=== PATIENT | male | born 1995 | race Caucasian/White ===

== ENCOUNTER 2017-08-13 19:45 | Emergency (ER) | payer SELFPAY ==
[~2017-08-13] VITALS: Ht 185.4 cm; Wt 86.2 kg
[2017-08-13 19:50] VITALS: BP 134/78
[2017-08-13] MEDS ORDERED: ONDANSETRON 4 MG TAB.RAPDIS ONE (21:16)
[2017-08-13] MEDS ORDERED: ONDANSETRON 4 MG TAB.RAPDIS PO ONE (21:30)
== END 2017-08-13 21:28 | disposition home or self-care (01) ==
LOC: ER 19:48
DX: A08.4 Viral intestinal infection, unspecified (principal); F90.9 Attention-deficit hyperactivity disorder, unspecified type; Z60.2 Problems related to living alone
CPT/HCPCS: 99283; A4606; Q0162; Z7610